=== PATIENT | male | born 1985 | race Caucasian/White ===

== ENCOUNTER 2024-06-24 00:51 | Emergency (ER) | payer OTHER ==
[~2024-06-24] VITALS: Ht 170.2 cm; Wt 108.9 kg
[2024-06-24] MEDS ORDERED: ASPIRIN 325MG TAB PO ONE (01:30)
--- NOTE | 2024-06-24 02:02 | ERN ---
ED Note History of Present Illness Stated Complaint: CHEST PAIN Chief Complaint: Chest Pain Time Seen by MD: 01:05 Dictation: This is a 39-year-old obese male who is from the correctional facility was brought in by the law enforcement for evaluation of chest pain patient stated that he started feeling a sharp stabbing pain in the left chest area around 1132 11:45 p.m.. The pain was so excruciating that he stated that he never felt this bad of a pain before. He had a NH in 2019 and had left heart catheterization and stents in [place]. Apparently he also had another cardiac event in 2022 in [facility] he does not know the hospital name. Patient has never been here before and I do not have any records to confirm the history that the patient has furnished His chronic medical problems are diabetes mellitus and coronary artery disease Allergies: Coded Allergies: aspirin (Unverified Allergy, Intermediate, SWOLLEN TONGUE, 06/24/24) Past Medical History Past Medical History: CAD, Diabetes-Type II Family History: Negative RN Note Reviewed/Agreed w/PFSH: Yes Review of System Dictation Constitutional: Negative for fever,chills, and weight loss Eyes: Negative for injury, pain,redness, and discharge ENT: Negative for injury,pain or swelling Cardiovascular: Positive for chest pain, palpitations, and edema Respiratory: Negative for shortness of breath, cough, and wheezing, Abdomen/GI: Negative for abdominal pain, nausea, vomiting, diarrhea, and constipation Back: Negative for injury and pain : Negative for injury, bleeding and discharge MS/Extremity: Negative for injury and deformity Skin: Negative for rash, and discoloration Neuro: Negative for headache, weakness, numbness, tingling, and seizure Psych: Negative for suicide ideation, homicidal ideation, and hallucinations Initial Vital Sign VS Vital Signs Date Time Temp Pulse Resp B/P (MAP) Pulse Ox O2 Delivery O2 Flow Rate FiO2 06/24/24 01:30 98.1 68 16 107/63 98 Room Air 0 06/24/24 04:09 21 Physical Exam Dictation General: awake, alert, NAD overweight male not in any distress Head/Face: Normocephalic, atraumatic Eyes: PERRL, EOMI, vision at baseline ENT: oral cavity clear, TMs clear, no signs of infection Neck: Trachea midline, supple, no nuchal rigidity Cardiovascular: RRR, normal S1/S2, No MRGs, no JVD Respiratory: CTAB, no respiratory distress, No rales or wheezes Abdomen: Soft, non-tender, non-distended, normal bowel sounds, no guarding or rebound. Skin: Warm, dry, normal turgor, no rash MS/Extremity: Pulses equal, no cyanosis, neurovascular intact, FROM hands shackled in the front. Neuro: COAx4, GCS 15, strength 5/5, CN 2-12 intact, normal cerebellar exam, normal gait, Psych: Normal behavior, mood, and affect normal Extremities-trace edema without any palpable cords, Homans sign is negative Results (Laboratory/Radiology) Laboratory/Radiology Laboratory Tests Test 06/24/24 03:04 06/24/24 04:06 06/24/24 04:48 White Blood Count 14.2 K/uL (4.8-10.8) H Red Blood Count 4.93 MIL/uL (4.50-6.20) Hemoglobin 14.3 g/dL (14.0-18.0) Hematocrit 42.0 % (42-54) Mean Corpuscular Volume 85.2 fL (79-99) Mean Corpuscular Hemoglobin 29.0 pg (27.0-33.0) Mean Corpuscular Hemoglobin Concent 34.0 g/dL (32.0-36.0) Red Cell Distribution Width 13.5 % (11.0-15.5) Platelet Count 220 K/uL (130-400) Mean Platelet Volume 11.3 fL (7.5-10.5) H Immature Granulocyte % (Auto) 0.4 % (0-1) Neutrophils (%) (Auto) 66.3 % (40.0-77.0) Lymphocytes (%) (Auto) 24.2 % (21.0-51.0) Monocytes (%) (Auto) 8.5 % (3.0-13.0) Eosinophils (%) (Auto) 0.2 % (0.0-8.0) Basophils (%) (Auto) 0.4 % (0.0-5.0) Neutrophils # (Auto) 9.4 K/uL (1.8-7.7) H Lymphocytes # (Auto) 3.5 K/uL (1.0-4.8) Monocytes # (Auto) 1.2 K/uL (0.1-1.0) H Eosinophils # (Auto) 0.03 K/uL (0.00-0.70) Basophils # (Auto) 0.06 K/uL (0.00-0.20) Absolute Immature Granulocyte (auto 0.05 K/uL (0-1) Nucleated Red Blood Cells 0.0 % (0.0-0.19) Sodium Level 137 mmol/L (136-145) Potassium Level 4.0 mmol/L (3.5-5.1) Chloride Level 100 mmol/L (101-111) L Carbon Dioxide Level 30 mmol/L (21-32) Blood Urea Nitrogen 34 mg/dL (7-18) H Creatinine 1.2 mg/dL (0.5-1.3) Glomerular Filtration Rate Calc 79 mL/min (>90) Random Glucose 106 mg/dL (70-105) H Total Calcium 9.1 mg/dL (8.5-10.1) Total Creatine Kinase 94 U/L (21-232) 90 U/L (21-232) Troponin I High Sensitivity 5 ng/L (4-75) 6.0 ng/L (4-75) Urine Color YELLOW (YELLOW) Urine Appearance CLEAR (CLEAR) Urine pH 7.5 (5.0-8.0) Urine Specific [place] 1.025 (1.001-1.031) Urine Protein NEGATIVE mg/dL (NEGATIVE) Urine Glucose (UA) NEGATIVE mg/dL (NEGATIVE) Urine Ketones NEGATIVE mg/dL (NEGATIVE) Urine Occult Blood NEGATIVE (NEGATIVE) Urine Nitrate NEGATIVE (NEGATIVE) Urine Bilirubin NEGATIVE mg/dL (NEGATIVE) Urine Urobilinogen 2.0 mg/dL (0.2-1.0) H Urine Leukocyte Esterase NEGATIVE [place]/uL Urine Opiates Screen NEGATIVE (NEGATIVE) Urine Barbiturates Screen NEGATIVE (NEGATIVE) Urine Phencyclidine Screen NEGATIVE (NEGATIVE) Urine Amphetamines Screen NEGATIVE (NEGATIVE) Urine Benzodiazepines Screen NEGATIVE (NEGATIVE) Urine Cocaine Screen NEGATIVE (NEGATIVE) Urine Marijuana (THC) Screen NEGATIVE (NEGATIVE) Labs Reviewed?: Yes EKG Comment: Twelve lead EKG done on 06/24/2024 at 12:57 a.m. showed a heart rate of 71, [place] interval 156, QRS duration 97, QT/QTC 407/443 Impression normal sinus rhythm with no acute changes noted. EKG rhythm strip-normal sinus rhythm with no acute changes. Interpreted by ER MD Brody ED Course ED Course Orders Procedure Category Date Status Time 12 Lead Ekg Tracing- EKG 06/24/24 Logged Technical 01:01 Cbc With Differential LAB 06/24/24 Complete 01:17 Chest 1vw RAD 06/24/24 Taken 01:17 12 Lead Ekg Tracing- EKG 06/24/24 Logged Technical 01:17 Creatine Kinase, Total LAB 06/24/24 Complete 01:17 Troponin I High LAB 06/24/24 Complete Sensitivity 01:17 Basic Metabolic Panel LAB 06/24/24 Complete 01:17 Urinalysis Profile LAB 06/24/24 Complete 01:18 Drug Screen Urine LAB 06/24/24 Complete 01:18 0.9%Nacl 1000ml (Ns PHA 06/24/24 Complete 1000ml) 01:30 Ketorolac PHA 06/24/24 Complete Tromethamine 30mg/Ml 01:30 Ondansetron 4mg Inj PHA 06/24/24 Complete (Zofran 4mg Inj) 01:30 Aspirin 325mg Tab PHA 06/24/24 Complete (Aspirin 325mg Tab) 01:30 Pantoprazole 40mg Tab PHA 06/24/24 Complete (Protonix 40mg Tab 01:30 Cardiac Panel LAB 06/24/24 Complete 03:40 Cefepime Hcl 1 Gm PHA 06/24/24 Complete Vial (Maxipime 1 Gm Vi 05:30 Current Medications Medications (Trade) Dose Ordered Sig/Ashlee Route PRN Reason Start Time Stop Time Status Last Admin Dose Admin Aspirin (Aspirin 325mg Tab) 325 mg ONCE ONCE PO 06/24/24 01:30 06/24/24 04:13 DC Cefepime HCl (MAXipime 1 GM vial) 1 gm ONCE ONCE IVPB 06/24/24 05:30 06/24/24 05:55 DC Ketorolac Tromethamine (toRADol) 30 mg ONCE ONCE IV 06/24/24 01:30 06/24/24 04:13 DC 06/24/24 04:17 Ondansetron HCl (zoFRAN 4MG INJ) 4 mg ONCE ONCE IVP 06/24/24 01:30 06/24/24 03:15 DC 06/24/24 03:52 Pantoprazole Sodium (PROTonix 40MG TAB) 40 mg ONCE ONCE PO 06/24/24 01:30 06/24/24 03:15 DC 06/24/24 03:52 Sodium Chloride 1,000 ml @ 0 mls/hr ONCE ONCE IV 06/24/24 01:30 06/24/24 03:15 DC 06/24/24 03:52 Vital Signs Date Time Temp Pulse Resp B/P (MAP) Pulse Ox O2 Delivery O2 Flow Rate FiO2 06/24/24 05:48 65 18 120/74 97 Room Air* 0 21 06/24/24 04:09 67 18 119/79 97 Room Air* 0 21 06/24/24 01:30 98.1 68 16 107/63 98 Room Air 0 We will perform diagnostic labs, advanced imaging and administer medications according to the patient's complaint. Once the results are available, will review and personally interpreted the labs to rule out any acute life- threatening emergency the trach require immediate intervention and treatment. I will then re-evaluate the patient after treatment and diagnostic exams have return to determine whether the patient requires any further testing, can safely be discharged home or need further admission to hospital for additional treatment and evaluation. HEART Score Response (Comments) Value History: Low suspicion (0) 0 EKG: Normal 0 Age: < 45yrs (0) 0 Risk Factors: 1-2 risk factors (+1) 1 Initial Troponin: Normal limit (0) 0 HEART Score Risk: Low Risk for MACE (1-3) Total 1 Medical Decision Making MDM MDM: Differential diagnosis: Pleurisy, pneumonia, gastroesophageal reflux disease, cardiac chest pain with unstable angina Rationale: Tests considered and ordered secondary to shared decision making include: Previous outside records reviewed: Old ER visits. Risk of complication and/or morbidity or mortality of patient management: None Medications-Per medication reconciliation Need for hospitalization: Patient does not meet criteria for hospitalization. Need for emergency major/minor surgery: No There are no social concerns with this patient. Prescription drug management Prescriptions will include symptomatic care Patient's prior external medical records from other ER visits were reviewed by me as indicated. Prior testing and results from previous visits were reviewed. Prior tests were taken into account with medical decision making and resource utilization, independent historian/historians were used to obtain complete medical history. I independently interpreted the test that were performed, results were reviewed by me and considered findings on radiology if ordered. Medical management and examination interpretation discussions were had by me with other qualified healthcare professionals as indicated for the patient's care. Problem List Problem List: (1) Pleurisy (2) Leukocytosis (3) Coronary artery disease DX & DISP Disposition: Discharge Departure Impression: Primary Impression: Pleurisy Additional Impressions: Leukocytosis, Coronary artery disease Condition: Stable Scripts Prednisone (Prednisone) 20 Mg Tablet 1 TAB PO AD for 6 Days, #14 TAB 0 Refills TAKE 1 TAB BY MOUTH THREE TIMES PER DAY X3 DAYS, THEN TAKE 1 TAB BY MOUTH TWICE A DAY X2 DAYS, THEN TAKE 1 TAB BY MOUTH ONCE A DAY X1 DAY. Prov: KELLI MARIE MD 06/24/24 Azithromycin (Azithromycin) 250 Mg Tablet 1 TAB PO AD for 5 Days, #6 TAB 0 Refills 2 the first day followed by 1 for days 2-5 Prov: KELLI MARIE MD 06/24/24 Additional Instructions: Patient and the caregiver have been informed of all the diagnostic tests and the imaging conducted during the today's visit to the emergency room and has ve rbalized understanding of the results I have personally reviewed and interpreted all diagnostic exams performed here in the ER today as well as the vital signs documented by the nursing staff. The patient is now being discharged to law enforcement and should follow up with the primary care physician or the specialist as directed by the ER staff. Referrals: SELF,REFERRAL (PCP) KELLI MARIE MD Jun 24, 2024 02:02
[2024-06-24 03:19] LABS: BASOPHILS # (AUTO) 0.06 K/uL (0.00-0.20); BASOPHILS % (AUTO) 0.4 % (0.0-5.0); EOSINOPHILS # (AUTO) 0.03 K/uL (0.00-0.70); EOSINOPHILS % (AUTO) 0.2 % (0.0-8.0); IMMATURE GRANULOCYTE ABSOLUTE 0.05 K/uL (0-1); LYMPHOCYTES # (AUTO) 3.5 K/uL (1.0-4.8); LYMPHOCYTES % (AUTO) 24.2 % (21.0-51.0); MEAN CORPUSCULAR VOLUME 85.2 fL (79-99); MONOCYTES # (AUTO) 1.2 K/uL (0.1-1.0); MONOCYTES % (AUTO) 8.5 % (3.0-13.0); NEUTROPHILS # (AUTO) 9.4 K/uL (1.8-7.7); NEUTROPHILS % (AUTO) 66.3 % (40.0-77.0); PLATELET COUNT (AUTO) 220 K/uL (130-400); RED BLOOD CELL COUNT(AUTO) 4.93 MIL/uL (4.50-6.20); RED CELL DISTRIBUTION WIDTH 13.5 % (11.0-15.5); WHITE BLOOD COUNT (AUTO) 14.2 K/uL (4.8-10.8)
[2024-06-24 03:23] LABS: CREATININE 1.2 mg/dL (0.5-1.3)
[2024-06-24] MEDS: 0.9%NACL 1000ML 1,000 ML IV ONE (03:52)
[2024-06-24] MEDS: ondanSETRON 4MG INJ IVP ONE (03:52)
[2024-06-24] MEDS: PANTOPrazole 40 MG TAB DR PO ONE (03:52)
[2024-06-24] MEDS: ketOROlac 30MG VIAL (30MG/ML) IV ONE (04:17)
[2024-06-24 04:18] LABS: APPEARANCE,URINE CLEAR (CLEAR); BILIRUBIN,URINE NEGATIVE (NEGATIVE); COLOR,URINE YELLOW (YELLOW); GLUCOSE, URINE (UA) NEGATIVE (NEGATIVE); KETONES,URINE NEGATIVE (NEGATIVE); LEUKOCYTE ESTERASE ,URINE NEGATIVE Leu/uL (NEGATIVE); NITRATE,URINE NEGATIVE (NEGATIVE); OCCULT BLOOD,URINE NEGATIVE (NEGATIVE); PH,URINE 7.5 (5.0-8.0); PROTEIN,URINE NEGATIVE (NEGATIVE)
[2024-06-24 04:27] LABS: ADD UA MICROSCOPIC NO
[2024-06-24 04:28] LABS: AMPHET/METH SCREEN,URINE NEGATIVE (NEGATIVE); BARBITURATE SCREEN, URINE NEGATIVE (NEGATIVE); BENZODIAZEPINES SCREEN,URINE NEGATIVE (NEGATIVE); CANNABINOID SCREEN,URINE NEGATIVE (NEGATIVE); COCAINE SCREEN,URINE NEGATIVE (NEGATIVE); OPIATE SCREEN,URINE NEGATIVE (NEGATIVE); PHENCYCLIDINE SCREEN,URINE NEGATIVE (NEGATIVE)
[2024-06-24] MEDS ORDERED: ceFEPime HCL 1 GM VIAL IVPB ONE (05:30)
[2024-06-24] MEDS ORDERED: AZIT250T9 PO (06:13)
[2024-06-24] MEDS ORDERED: PRED20TA3 PO (06:14)
[2024-06-24 06:44] VITALS: BP 128/78; PULSE 67; RESP 18; TEMP 98.2; O2SAT 97
--- NOTE | 2024-06-24 07:11 | EKG ---
[facility] Test Date: 2024-06-24 Test Time: 00:57:49 Pat Name: LUIS DANIEL TODD Department: ED Room: Gender: M [employer]: [id number] : 1985 Requested By: KELLI MARIE Order Number: [id number] Reading MD: David Doe Measurements Intervals [place] Rate: 71 P: 71 OR: 156 QRS: -5 QRSD: 97 T: 23 QT: 407 QTc: 443 Interpretive Statements Sinus rhythm No previous ECG available for comparison Electronically Signed On 06-25-2024 11:38:33 CDT by David Doe Please click the below link to view image of tracing.
--- NOTE | 2024-06-24 09:34 | HMCIMG ---
Exam Type: CHEST 1VW Clinical Information: chest pain Comparison: None Findings: The lungs are clear of infiltrates. The heart is normal in size. The bony and soft tissue structures of the chest are unremarkable. Impression: Clear lungs.
== END 2024-06-24 06:43 | disposition home or self-care (01) ==
LOC: EEVIPCON 00:51 → EDH 00:51
DX: R09.1 Pleurisy (principal); D72.829 Elevated white blood cell count, unspecified; I25.10 Atherosclerotic heart disease of native coronary artery without angina pectoris; E11.9 Type 2 diabetes mellitus without complications; Z88.6 Allergy status to analgesic agent
CPT/HCPCS: 99285; 96374; 71045; 96375; 82550 ×2; 84484 ×2; 80048; 80305; 85025; 36415; 93005; 81003; J1885; J7030; J2405